=== PATIENT | male | born 1965 | race Caucasian/White ===

== ENCOUNTER 2017-02-22 10:31 | Emergency (ER) | payer SELFPAY ==
[~2017-02-22] VITALS: Ht 172.7 cm; Wt 111.4 kg
[2017-02-22 10:39] VITALS: Ht 172.7 cm; Wt 111.4 kg
--- NOTE | 2017-02-22 11:22 | EMERGENCY ROOM VISIT NOTE ---
History Report prepared by Eitan: Babita Arredondo Under the Supervision of: Dr. Gina Kang D.O. First contact with patient: 10:43 Chief Complaint: TESTICULAR PAIN Stated Complaint: PAIN AND SWELLING IN RIGHT TESTE,FEVER History of Present Illness The patient is a 51 year old male who presents to the Emergency Room with complaints of worsening right testicle pain and swelling for the past 1 week. He is accompanied by a family member who is translating for him. He rates his discomfort as a 7/10 in severity. He complains of fevers at night, with the highest temperature being around 100.4 degrees. He states he has no fever during the day time. The patient reports he is not circumcised and the foreskin can often be difficult to retract. He denies any penile discharge or urinary symptoms. He has never experienced similar symptoms in the past. The patient denies any abdominal pain or vomiting. He states he does have a "bump" in his abdomen that he thinks is a hernia. The bump increases in size if he coughs or strains at all. The patient denies any family history of testicular cancer. He is in a monogamous relationship with his and has no prior history of STD' s. 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 Source of History: patient, family History Limited By: language Onset: 1 week [employer] Position: pelvis (right testicle) Symptom Intensity: 7/10 Timing: worsening Associated Symptoms: + fevers, No vomiting, No abdominal pain, No urinary symptoms Review of Systems See HPI for pertinent positives & negatives. A total of 10 systems reviewed and were otherwise negative. Past Medical & Surgical Medical Problems: (1) Hernia Social History Smoking Status: Never Smoker Alcohol Use: occasionally Drug Use: none Marital Status: Housing Status: lives with family Occupation Status: employed Current/Historical Medications Scheduled Levofloxacin (Levaquin), 500 MG PO DAILY Scheduled PRN Albuterol Hfa (Ventolin Hfa), 2-4 PUFFS INH Q6H PRN for Shortness of Breath Allergies Coded Allergies: No Known Allergies (Unverified , 02/22/17) Physical Exam Vital Signs Date Time Temp Pulse Resp B/P (MAP) Pulse Ox O2 Delivery O2 Flow Rate FiO2 02/22/17 14:11 86 18 146/85 96 Room Air 02/22/17 13:11 37.2 80 16 139/82 96 Room Air 02/22/17 10:39 36.3 88 20 168/102 97 Room Air Physical Exam GENERAL: alert, well appearing, well nourished, no distress, non-toxic EYE EXAM: normal conjunctiva, PERRL and EOM's grossly intact OROPHARYNX: no exudate, no erythema, lips, buccal mucosa, and tongue normal and mucous membranes are moist NECK: supple, no nuchal rigidity, no adenopathy, non-tender LUNGS: Clear to auscultation. Normal chest wall mechanics HEART: no murmurs, S1 normal and S2 normal ABDOMEN: abdomen soft, non-tender, normo-active bowel sounds, no masses, no rebound or guarding. No palpable hernia. : No inguinal lymphadenopathy, uncircumcised male, however foreskin could not be completely retracted. Urethral meatus able to visualized, no obvious discharge or irritation. No balanitis. Left testicle is normal shape and size, nontender, normal lie. Right testicle is enlarged, tender to palpation, with surrounding scrotal edema, no palpable mass, no erythema noted to overlying scrotum. No other rash or sores. BACK: Back is symmetrical on inspection and there is no deformity, no midline tenderness, no CVA tenderness. SKIN: no rashes and no bruising UPPER EXTREMITIES: upper extremities are grossly normal. LOWER EXTREMITIES: No pitting edema. NEURO EXAM: Normal sensorium, cranial nerves II-XII grossly intact, normal speech, no gross weakness of arms, no gross weakness of legs. Medical Decision & Procedures ER Provider Diagnostic Interpretation: Radiology results have been interpreted by the radiologist and reviewed by me. TESTICULAR ULTRASOUND HISTORY: right testicle pain/swelling COMPARISON: None. FINDINGS: Right testis: 4.6 x 3.3 x 2.9 cm. No testicular masses. Increased color flow within the testis and epididymis. Septated small hydrocele. Left testis: 4.6 x 2.7 x 1.9 cm. There are no intratesticular masses. Normal color flow. Trace hydrocele. Small varicocele. A 3 mm epididymal head cyst.. IMPRESSION: 1. Increased color flow within the right testis and epididymis with a complex small hydrocele. This is consistent with epididymoorchitis. 2. Trace left hydrocele. 3. Small left varicocele. Electronically signed by: Olegario Joaquin M.D. 02/22/2017 11:57 AM Laboratory Results 02/22/17 11:03 Red Blood Count 5.36, Mean Corpuscular Volume 88.4, Mean Corpuscular Hemoglobin 31.7, Mean Corpuscular Hemoglobin Concent 35.9, Mean Platelet Volume 9.6, Neutrophils (%) (Auto) 68.5, Lymphocytes (%) (Auto) 20.1, Monocytes (%) (Auto) 8.3, Eosinophils (%) (Auto) 2.5, Basophils (%) (Auto) 0.2, Neutrophils # (Auto) 7.13, Lymphocytes # (Auto) 2.09, Monocytes # (Auto) 0.86, Eosinophils # (Auto) 0.26, Basophils # (Auto) 0.02 02/22/17 11:03 Test 02/22/17 11:03 White Blood Count 10.40 K/uL (4.8-10.8) Red Blood Count 5.36 M/uL (4.7-6.1) Hemoglobin 17.0 g/dL (14.0-18.0) Hematocrit 47.4 % (42-52) Mean Corpuscular Volume 88.4 fL (80-100) Mean Corpuscular Hemoglobin 31.7 pg (25-34) Mean Corpuscular Hemoglobin Concent 35.9 g/dl (32-36) Platelet Count 202 K/uL (130-400) Mean Platelet Volume 9.6 fL (7.4-10.4) Neutrophils (%) (Auto) 68.5 % Lymphocytes (%) (Auto) 20.1 % Monocytes (%) (Auto) 8.3 % Eosinophils (%) (Auto) 2.5 % Basophils (%) (Auto) 0.2 % Neutrophils # (Auto) 7.13 K/uL (1.4-6.5) Lymphocytes # (Auto) 2.09 K/uL (1.2-3.4) Monocytes # (Auto) 0.86 K/uL (0.11-0.59) Eosinophils # (Auto) 0.26 K/uL (0-0.5) Basophils # (Auto) 0.02 K/uL (0-0.2) RDW Standard Deviation 42.1 fL (36.4-46.3) RDW Coefficient of Variation 13.1 % (11.5-14.5) Immature Granulocyte % (Auto) 0.4 % Immature Granulocyte # (Auto) 0.04 K/uL (0.00-0.02) Urine Color YELLOW Urine Appearance CLEAR (CLEAR) Urine pH 6.0 (4.5-7.5) Urine Specific [place] 1.012 (1.000-1.030) Urine Protein NEG (NEG) Urine Glucose (UA) NEG (NEG) Urine Ketones NEG (NEG) Urine Occult Blood NEG (NEG) Urine Nitrite NEG (NEG) Urine Bilirubin NEG (NEG) Urine Urobilinogen NEG (NEG) Urine Leukocyte Esterase MODERATE (NEG) Urine WBC (Auto) 5-10 /hpf (0-5) Urine RBC (Auto) 0-4 /hpf (0-4) Urine Hyaline Casts (Auto) 0 /lpf (0-5) Urine Epithelial Cells (Auto) 5-10 /lpf (0-5) Urine Bacteria (Auto) NEG (NEG) Anion Gap 5.0 mmol/L (3-11) Est Creatinine Clear Calc Drug Dose 97.3 ml/min Estimated GFR () 90.2 Estimated GFR (Non- 77.9 BUN/Creatinine Ratio 16.0 (10-20) Calcium Level 9.4 mg/dl (8.5-10.1) Total Bilirubin 0.8 mg/dl (0.2-1) Aspartate Amino Transf (AST/SGOT) 24 U/L (15-37) Alanine Aminotransferase (ALT/SGPT) 55 U/L (12-78) Alkaline Phosphatase 76 U/L (45-117) Total Protein 8.4 gm/dl (6.4-8.2) Albumin 3.8 gm/dl (3.4-5.0) Globulin 4.6 gm/dl (2.5-4.0) Albumin/Globulin Ratio 0.8 (0.9-2) Laboratory results per my review. Medications Administered Medications (Trade) Dose Ordered Sig/Hien Route Start Time Stop Time Status Last Admin Dose Admin Levofloxacin 100 ml @ 100 mls/hr TODAY@1315 STAT IV 02/22/17 13:02 02/22/17 14:01 DC 02/22/17 13:08 100 MLS/HR ED Course 1054: The patient was evaluated in room A3. A complete history and physical exam was performed. 1248: Levaquin 100 ml @ 100 mls/hr IV. 1300: I reevaluated the patient. He is resting comfortably. I updated him on his ultrasound results. 1335: I reevaluated the patient. He is feeling well and ready to go home. I discussed his results and discharge instructions and he verbalized complete understanding and agreement. Medical Decision Etiologies such as torsion, mass, infection, hernia, hydrocele, epididymitis, trauma, intra-abdominal process, as well as others were entertained. Pt well appearing. Discussed all results. No evidence of bacteremia/sepsis. No palpable inguinal hernia, no lymphadopathy. Doubt concurrent GI pathology. Discussed need for follow-up with urology for both issues, discussed sx to watch /return for, he verbalized understanding and was agreeable with plan. Doubt STD. Medication Reconcilliation Current Medication List: was personally reviewed by me Blood Pressure Screening Patient's blood pressure: Elevated blood pressure Blood pressure disposition: Elevated BP felt to be situational Impression Primary Impression: Epididymo-orchitis, acute Additional Impression: Phimosis Scribe Attestation The scribe's documentation has been prepared under my direction and personally reviewed by me in its entirety. I confirm that the note above accurately reflects all work, treatment, procedures, and medical decision making performed by me. Departure Information Dispostion Home / Self-Care Prescriptions Levofloxacin (Levaquin) 500 Mg Tab 500 MG PO DAILY for 10 Days, #10 TAB Prov: Gina Kang, DO 02/22/17 Referrals No Doctor, Assigned (PCP) Patient Instructions My [facility] Additional Instructions Please take the antibiotic daily as prescribed. Please drink plenty of water. While you're on the antibiotic please consider using a probiotic such as those which are [id number] to help prevent any GI side effects. Please call and follow up with a urologist regarding the inflamed testicle you have as well as the inability to completely retract your foreskin. If you develop persistent or worsening fevers, or unable to urinate, have worsening pain or swelling of your testicle or scrotum, develop rashes or sores, vomiting, abdominal pain, back pain, or you have any other new concerns, please return to the emergency room. Problem Qualifiers
[2017-02-22] MEDS ORDERED: VNTHFA/IN INH (11:31)
[2017-02-22 11:34] LABS: BASO % 0.2 %; BASO ABS # 0.02 K/uL (0-0.2); COMPLETE YES; EOS % 2.5 %; HEMATOCRIT 47.4 % (42-52); IG% 0.4 %; LYMPH % 20.1 %; LYMPH ABS # 2.09 K/uL (1.2-3.4); MEAN CELL VOLUME 88.4 fL (80-100); MEAN CORPUSCULAR HEMOGLOBIN 31.7 pg (25-34); MEAN CORPUSCULAR HGB CONC 35.9 g/dl (32-36); MEAN PLATELET VOLUME 9.6 fL (7.4-10.4); MONO % 8.3 %; NEUT % 68.5 %; PLATELET COUNT 202 K/uL (130-400); RED BLOOD COUNT 5.36 M/uL (4.7-6.1)
[2017-02-22 11:41] LABS: CREATININE 1.1 mg/dl (0.60-1.40)
[2017-02-22 11:42] LABS: CALCIUM 9.4 mg/dl (8.5-10.1); POTASSIUM 3.8 mmol/L (3.5-5.1); URINE APPEARANCE CLEAR (CLEAR); URINE BILIRUBIN NEG (NEG); URINE COLOR YELLOW; URINE NITRITE NEG (NEG); URINE SPECIFIC GRAVITY 1.012 (1.000-1.030); UROBILINOGEN NEG (NEG); ZZUR CULT IF INDIC CLEAN CATCH NO
[2017-02-22 11:44] LABS: ALB/GLOB RATIO 0.8 (0.9-2)
[2017-02-22 11:46] LABS: MANUAL MICROSCOPIC REQUIRED? NO; REVIEW REQ? NO
--- NOTE | 2017-02-22 11:59 | DIAGNOSTIC IMAGING REPORT ---
TESTICULAR ULTRASOUND HISTORY: right testicle pain/swelling COMPARISON: None. FINDINGS: Right testis: 4.6 x 3.3 x 2.9 cm. No testicular masses. Increased color flow within the testis and epididymis. Septated small hydrocele. Left testis: 4.6 x 2.7 x 1.9 cm. There are no intratesticular masses. Normal color flow. Trace hydrocele. Small varicocele. A 3 mm epididymal head cyst.. IMPRESSION: 1. Increased color flow within the right testis and epididymis with a complex small hydrocele. This is consistent with epididymoorchitis. 2. Trace left hydrocele. 3. Small left varicocele. Electronically signed by: Olegario Joaquin M.D. 02/22/2017 11:57 AM Dictated Date/Time: 02/22/2017 11:53 AM
[2017-02-22] MEDS ORDERED: LEVAQUIN 750MG / 150ML D5W IV STA (12:48)
[2017-02-22] MEDS ORDERED: LEVOFLOXACIN / D5W 500 MG IV STA (13:02)
[2017-02-22 13:11] VITALS: TEMP 37.2
[2017-02-22] MEDS ORDERED: LEVO-366 PO (13:44)
[2017-02-22 14:11] VITALS: BP 146/85; PULSE 86; O2SAT 96
== END 2017-02-22 14:14 | disposition home or self-care (01) ==
LOC: C.EDB 10:35 → C.EDA 14:14
DX: N45.3 Epididymo-orchitis (principal); N47.1 Phimosis

== ENCOUNTER 2017-10-08 01:17 | Emergency (ER) | payer OTHER ==
[~2017-10-08] VITALS: Ht 175.3 cm; Wt 109.8 kg
[~2017-10-08 01:17] MED LIST: VNTHFA/IN INH
[2017-10-08 01:21] VITALS: TEMP 36.8; Ht 175.3 cm; Wt 109.8 kg
[2017-10-08] MEDS ORDERED: SODIUM CHLORIDE 0.9% 1000ML 1,000 ML IV STA (01:34)
[2017-10-08] MEDS ORDERED: MoRPHine SULFATE 4 MG/ML 1 ML CARP\\VIAL IV STA (01:34)
[2017-10-08] MEDS ORDERED: ONDANSETRON INJ 2 MG/ML 2 ML VIAL IV STA (01:34)
[2017-10-08] MEDS ORDERED: OPTIRAY 320 IV PRN (01:45)
[2017-10-08 02:06] LABS: BASO % 0.2 %; BASO ABS # 0.02 K/uL (0-0.2); EOS % 0.7 %; EOS ABS # 0.07 K/uL (0-0.5); HEMATOCRIT 40.7 % (42-52); HEMOGLOBIN 14.7 g/dL (14.0-18.0); IG# 0.03 K/uL (0.00-0.02); LYMPH % 13.1 %; LYMPH ABS # 1.29 K/uL (1.2-3.4); MEAN CELL VOLUME 88.5 fL (80-100); MEAN CORPUSCULAR HGB CONC 36.1 g/dl (32-36); MEAN PLATELET VOLUME 9.6 fL (7.4-10.4); MONO % 6.4 %; MONO ABS # 0.63 K/uL (0.11-0.59); NEUT % 79.3 %; NEUT ABS # 7.83 K/uL (1.4-6.5); PLATELET COUNT 142 K/uL (130-400); RED CELL DISTRIBUTION WIDTH CV 13.5 % (11.5-14.5); RED CELL DISTRIBUTION WIDTH SD 43.3 fL (36.4-46.3); WHITE BLOOD COUNT 9.87 K/uL (4.8-10.8)
[2017-10-08 02:28] LABS: ALBUMIN 3.9 gm/dl (3.4-5.0); CALCIUM 8.4 mg/dl (8.5-10.1); CREATININE 1.14 mg/dl (0.60-1.40); POTASSIUM 3.7 mmol/L (3.5-5.1); TOTAL PROTEIN 7.4 gm/dl (6.4-8.2)
[2017-10-08 02:29] LABS: ISTAT CREATININE 1.1 mg/dl (0.6-1.3); ISTAT IONIZED CALCIUM 1.18 mmol/l (1.12-1.32); ISTAT POTASSIUM 3.7 mEq/L (3.3-5.0)
[2017-10-08 03:34] VITALS: BP 136/82; PULSE 84; O2SAT 98
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
[2017-10-08] MEDS ORDERED: OXYC-737 PO (04:04)
[2017-10-08] MEDS ORDERED: OXYCODONE IR HOME PACK PO ONE (04:15)
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
== END 2017-10-08 04:15 | disposition home or self-care (01) ==
LOC: C.EDB 01:19 → C.EDC 04:15
DX: S42.402A Unspecified fracture of lower end of left humerus, initial encounter for closed fracture (principal); S29.9XXA Unspecified injury of thorax, initial encounter; V86.95XA Unspecified occupant of 3- or 4- wheeled all-terrain vehicle (ATV) injured in nontraffic accident, initial encounter

== ENCOUNTER 2017-10-10 17:44 | Emergency (ER) | payer OTHER ==
[~2017-10-10] VITALS: Ht 172.7 cm; Wt 110.0 kg
[2017-10-10 18:01] VITALS: TEMP 36.9; Ht 172.7 cm; Wt 110.0 kg
[2017-10-10 19:22] VITALS: BP 148/106; PULSE 79; O2SAT 93
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
== END 2017-10-10 19:24 | disposition home or self-care (01) ==
LOC: C.EDB 17:45 → C.EDD 19:24
DX: M79.89 Other specified soft tissue disorders (principal); S42.402A Unspecified fracture of lower end of left humerus, initial encounter for closed fracture; V86.99XA Unspecified occupant of other special all-terrain or other off-road motor vehicle injured in nontraffic accident, initial encounter; R03.0 Elevated blood-pressure reading, without diagnosis of hypertension

== ENCOUNTER → 2017-10-10 | Outpatient (CLI) | payer OTHER ==
[~2017-10-10] MED LIST changes: +OXYC-737 PO
== END | disposition home or self-care (01) ==
LOC: C.CPL 10:22
PROVIDERS: ATTEND Orthopaedic Surgery Sports Medicine
DX: S52.022A Displaced fracture of olecranon process without intraarticular extension of left ulna, initial encounter for closed fracture (principal); X58.XXXA Exposure to other specified factors, initial encounter